=== PATIENT | female | born 1995 | race Caucasian/White ===

== ENCOUNTER 2020-11-26 04:59 | Inpatient (IN) | payer MEDICAID ==
[~2020-11-26] VITALS: Ht 154.9 cm; Wt 83.0 kg
[2020-11-26] MEDS ORDERED: LIDOCAINE HCL 1% 20ML VIAL (Pyxis) INJ INFIL SCH (06:45)
[2020-11-26] MEDS ORDERED: BUTORPHANOL TARTRATE 2 MG/ML VIAL IV PRN (06:45)
[2020-11-26] MEDS ORDERED: NALOXONE HCL 0.4 MG/ML 1ML VIAL IM PRN (06:45)
[2020-11-26] MEDS ORDERED: CARBOPROST TROMETHAMINE 250 MCG/ML AMPUL IM PRN (06:45)
[2020-11-26] MEDS ORDERED: METHYLERGONOVINE MALEATE 0.2 MG/ML IM PRN (06:45)
[2020-11-26] MEDS ORDERED: MISOPROSTOL 200MCG TABLET VG SCH (06:45)
[2020-11-26] MEDS: LACTATED RINGERS 1,000 ML IV SCH ×2 (06:59→07:59)
[2020-11-26] MEDS ORDERED: PENICILLIN G POTASSIUM 5 MMU in DEXT 5% WATER 100 ML IV SCH (07:00)
[2020-11-26 07:23] LABS: BASOPHILS % 0.3 % (0.0-2.0); EOSINOPHILS % 1.1 % (0.0-5.0); HEMOGLOBIN. 12.2 g/dL (12.0-16.0); LYMPHOCYTES % 27.3 % (20.0-50.0); MEAN CORPUSCULAR HEMOGLOBIN 27.3 pg (28.0-32.0); MEAN CORPUSCULAR VOLUME 80.8 fL (81.0-99.0); MEAN PLATELET VOLUME 9.6 fl (7.4-10.4); MONOCYTES % 7.3 % (2.0-8.0); PLATELET 130 x1000/uL (130-400); RED BLOOD CELL COUNT 4.45 mill/uL (4.2-5.4); RED CELL DISTRIBUTION WIDTH 15.6 % (11.6-14.6)
[2020-11-26 07:26] LABS: CLARITY URINE CLEAR (CLEAR); COLOR URINE YELLOW (YELLOW); KETONES URINE NEGATIVE (NEGATIVE); LEUKOCYTE ESTERASE URINE NEGATIVE (NEGATIVE); NITRITE URINE NEGATIVE (NEGATIVE); OCCULT BLOOD URINE NEGATIVE (NEGATIVE); PROTEIN URINE NEGATIVE (NEGATIVE); SPECIFIC GRAVITY URINE 1.011 (1.005-1.030); UROBILINOGEN URINE 0.2 E.U./dL (0.2-1.0)
[2020-11-26] MEDS ORDERED: ROPIVACAINE HCL/PF EPIDURAL 200 ML EP SCH (07:30)
[2020-11-26 07:35] LABS: *AMPHETAMINES SCREEN URINE NEGATIVE (NEGATIVE); *BARBITURATES SCREEN URINE NEGATIVE (NEGATIVE); *BENZODIAZEPINES SCREEN URINE NEGATIVE (NEGATIVE); *COCAINE SCREEN URINE NEGATIVE (NEGATIVE)
[2020-11-26 07:36] LABS: CANNABINOID URINE SCREEN NEGATIVE (NEGATIVE); METHADONE URINE SCREEN NEGATIVE (NEGATIVE); OPIATES URINE SCREEN NEGATIVE (NEGATIVE); PHENCYCLIDINE URINE SCREEN NEGATIVE (NEGATIVE)
[2020-11-26 07:52] LABS: INR 0.9; PARTIAL THROMBOPLASTIN TIME 27.9 sec (23.4-31.0); PROTHROMBIN TIME 10.2 sec (9.6-11.0)
[2020-11-26] MEDS ORDERED: LIDOCAINE HCL 2%/EPINEPHRINE 1:100,000 20 ML VIAL INFIL ONE (08:00)
[2020-11-26 08:04] LABS: HEPATITIS B SURFACE ANTIGEN NEGATIVE
[2020-11-26] MEDS ORDERED: FENTANYL CITRATE/PF 50MCG/ML 2ML VIAL ONE (08:34)
[2020-11-26] MEDS ORDERED: PENICILLIN G POTASSIUM 2.5 MMU in DEXTROSE 5% WATER 50 ML IV SCH (11:00)
[2020-11-26] MEDS ORDERED: ACETAMINOPHEN 500MG TABLET PO NR (13:45)
[2020-11-26] MEDS: DEXT 5%/LR + PITOCIN 20UNITS/L 1,000 ML IV SCH ×2 (13:51→15:36)
[2020-11-26] MEDS ORDERED: GLYCERIN/WITCH HAZEL LEAF MEDICATED PAD TOP PRN (15:30)
[2020-11-26] MEDS ORDERED: LANOLIN OINT 7GM TUBE TOP PRN (15:30)
[2020-11-26] MEDS ORDERED: HEMORRHOIDAL SUPP PR PRN (15:30)
[2020-11-26] MEDS ORDERED: BISACODYL 10MG SUPP PR PRN (15:30)
[2020-11-26] MEDS ORDERED: IBUPROFEN 400MG TABLET PO PRN (15:30)
[2020-11-26] MEDS ORDERED: ACETAMINOPHEN WITH CODEINE 300/30MG TABLET PO PRN (15:30)
[2020-11-26] MEDS ORDERED: DEXT 5%/LR + PITOCIN 20UNITS/L 1,000 ML IV SCH (15:30)
[2020-11-26] MEDS ORDERED: DIPHENHYDRAMINE 25MG CAPSULE PO PRN (15:30)
[2020-11-26 17:00] VITALS: BP 120/79
[2020-11-26 17:30] VITALS: BP 128/82
[2020-11-26 20:00] VITALS: BP 98/55
[2020-11-26] MEDS: DOCUSATE SODIUM 100MG CAPSULE PO SCH (21:39)
[2020-11-27] VITALS: BP 101/55
[2020-11-27 04:00] VITALS: BP 100/69
[2020-11-27 05:33] LABS: BASOPHILS % 0.3 % (0.0-2.0); EOSINOPHILS % 1.5 % (0.0-5.0); HEMATOCRIT. 32.7 % (36.0-48.0); LYMPHOCYTES % 30.3 % (20.0-50.0); MEAN CORPUSCULAR HEMOGLOBIN 26.8 pg (28.0-32.0); MEAN CORPUSCULAR VOLUME 79.4 fL (81.0-99.0); MEAN PLATELET VOLUME 9.4 fl (7.4-10.4); MONOCYTES % 7.1 % (2.0-8.0); NEUTROPHILS % 60.8 % (40.0-76.0); PLATELET 127 x1000/uL (130-400); RED BLOOD CELL COUNT 4.12 mill/uL (4.2-5.4); RED CELL DISTRIBUTION WIDTH 15.9 % (11.6-14.6)
[2020-11-27] MEDS: IBUPROFEN 800MG TABLET PO PRN ×2 (06:13→17:27)
[2020-11-27 07:28] VITALS: BP 94/53
[2020-11-27] MEDS: FERROUS SULFATE 325MG TABLET PO SCH ×3 (08:08→17:27)
[2020-11-27] MEDS: PRENATAL VIT/FE FUMARATE/FA TABLET PO SCH (08:08)
[2020-11-27] MEDS ORDERED: FERR325T23 PO (09:32)
[2020-11-27] MEDS ORDERED: MULT-1146 MT (09:32)
[2020-11-27] MEDS ORDERED: IBUP-2030 PO (09:32)
[2020-11-27 14:57] VITALS: BP 95/50
[2020-11-27] MEDS: DOCUSATE SODIUM 100MG CAPSULE PO SCH (20:51)
[2020-11-27 22:00] VITALS: BP 92/53
[2020-11-28 05:27] VITALS: BP 90/45
[2020-11-28 06:00] VITALS: BP 91/52
[2020-11-28 07:30] VITALS: BP 90/53
[2020-11-28] MEDS: IBUPROFEN 800MG TABLET PO PRN (08:02)
[2020-11-28] MEDS: FERROUS SULFATE 325MG TABLET PO SCH (08:02)
[2020-11-28] MEDS: PRENATAL VIT/FE FUMARATE/FA TABLET PO SCH (08:02)
== END 2020-11-28 18:56 | disposition home or self-care (01) | DRG 560 ==
LOC: 8 EST LDRP 04:59 → OBSVTOIN 15:13 → 8EST 19:34
PROVIDERS: ADMIT Obstetrics & Gynecology; ATTEND Obstetrics & Gynecology
PROC: 10E0XZZ Delivery of Products of Conception, External Approach (ICD-10-PCS; principal; 2020-11-26)
PROC: 3E0R3BZ Introduction of Anesthetic Agent into Spinal Canal, Percutaneous Approach (ICD-10-PCS; 2020-11-26)
PROC: 00HU33Z Insertion of Infusion Device into Spinal Canal, Percutaneous Approach (ICD-10-PCS; 2020-11-26)
DX: O48.0 Post-term pregnancy (principal); O77.0 Labor and delivery complicated by meconium in amniotic fluid; O99.824 Streptococcus B carrier state complicating childbirth; Z37.0 Single live birth; Z3A.40 40 weeks gestation of pregnancy
CPT/HCPCS: 36415; 76815; 80305; 81003; 85025; 86592; 86703; 86762; 86850; 86900; 87340; 99281; G0378; J0595; J2210; J2540; J2590; J2795; J3010; J3490; J7060; J7120; A4315

== ENCOUNTER 2021-10-01 00:32 | Emergency (ER) | payer MEDICAID ==
[~2021-10-01] VITALS: Ht 144.8 cm; Wt 84.4 kg
[~2021-10-01 00:32] MED LIST: FERR325T23 PO; IBUP-2030 PO; MULT-1146 MT
[2021-10-01 00:53] VITALS: BP 107/54
[2021-10-01] MEDS ORDERED: ONDANSETRON HCL 4MG/2ML INJ IV STA (02:55)
[2021-10-01] MEDS ORDERED: SODIUM CHLORIDE 0.9% 1,000 ML IV ONE (03:00)
[2021-10-01 03:12] LABS: CLARITY URINE CLEAR (CLEAR); COLOR URINE YELLOW (YELLOW); KETONES URINE NEGATIVE (NEGATIVE); LEUKOCYTE ESTERASE URINE 2+ (NEGATIVE); NITRITE URINE NEGATIVE (NEGATIVE); OCCULT BLOOD URINE NEGATIVE (NEGATIVE); PH URINE 7.5 (4.5-8.0); PROTEIN URINE NEGATIVE (NEGATIVE)
[2021-10-01 03:17] LABS: BASOPHILS % 0.7 % (0.0-2.0); EOSINOPHILS % 2.7 % (0.0-5.0); HEMATOCRIT. 39.2 % (36.0-48.0); HEMOGLOBIN. 12.9 g/dL (12.0-16.0); MEAN CORPUSCULAR HEMOGLOBIN 25.3 pg (28.0-32.0); MEAN CORPUSCULAR VOLUME 76.7 fL (81.0-99.0); MEAN PLATELET VOLUME 9.2 fl (7.4-10.4); MONOCYTES % 7.5 % (2.0-8.0); NEUTROPHILS % 43.1 % (40.0-76.0); PLATELET 193 x1000/uL (130-400); RED BLOOD CELL COUNT 5.11 mill/uL (4.2-5.4); RED CELL DISTRIBUTION WIDTH 14.4 % (11.6-14.6)
[2021-10-01 03:26] LABS: CHLORIDE 109 mEq/L (98-107)
[2021-10-01] MEDS ORDERED: MORPHINE SULFATE 4 MG/ML CPJ (NOT FOR IM USE) IV ONE (04:45)
[2021-10-01] MEDS ORDERED: ACETAMINOPHEN 325MG TABLET PO ONE (05:00)
[2021-10-01] MEDS ORDERED: CEPH500T MT (05:13)
== END 2021-10-01 05:42 | disposition home or self-care (01) ==
LOC: ER 00:32
DX: N39.0 Urinary tract infection, site not specified (principal)
CPT/HCPCS: 36415; 80053; 81003; 83690; 85025; 96361; 96374; 99284; J2405